=== PATIENT | male | born 1950 | race Two or more races ===

== ENCOUNTER 2017-01-03 12:11 | Observation (INO) | payer BC, OTHER ==
--- NOTE | 2017-01-03 12:27 | CPEKG ---
Heart Rate: 71 RR Interval: 845 P-R Interval: 188 QRSD Interval: 86 QT Interval: 392 QTC Interval: 426 P Venango: 10 QRS Venango: -9 T Wave Venango: 11 EKG Severity - NORMAL ECG - EKG Impression: SINUS RHYTHM Electronically Signed By: Carl Ramos 03-Jan-2017 15:27:18
[2017-01-03 12:34] LABS: HEMATOCRIT 46.6 % (40.0-51.0); HEMOGLOBIN 15.6 g/dL (13.7-17.5); MEAN CELL HEMOGLOBIN 29.3 pg (27.9-34.1); MEAN CELL HEMOGLOBIN CONCENTR. 33.5 g/dL (32.4-36.7); MEAN CELL VOLUME 87.6 fL (81.5-99.8); RED BLOOD CELL COUNT 5.32 10^6/uL (4.40-6.38); RED CELL DISTRIBUTION WIDTH 12.4 % (11.5-15.2)
[2017-01-03 12:35] LABS: % IMMATURE GRANULYOCYTES 0.4 % (0.0-1.1); ABSOLUTE IMMATURE GRANULOCYTES 0.02 10^3/uL (0.00-0.10); ADD DIFF? NO; ADD MORPH? NO; ADD SCAN? NO; ATYPICAL LYMPHOCYTE FLAG 0 (0-99); FRAGMENT RBC FLAG 0 (0-99); LEFT SHIFT FLG 0 (0-99); LIPEMIA HEMOLYSIS FLAG 80 (0-99); MEAN PLATELET VOLUME 11.4 fL (8.7-11.7); PLATELET CLUMPS FLAG 0 (0-99); PLATELET COUNT 191 10^3/uL (150-400)
[2017-01-03 12:36] LABS: ANION GAP 15 mEq/L (8-16); CALCIUM 9.4 mg/dL (8.5-10.4); CARBON DIOXIDE 21 mEq/l (22-31); CHLORIDE 106 mEq/L (97-110); CREATININE 0.9 mg/dL (0.7-1.3); GLOMERULAR FILTRATION RATE > 60; GLUCOSE 108 mg/dL (70-100); SODIUM 142 mEq/L (134-144)
[2017-01-03 12:47] LABS: TROPONIN I < 0.012 ng/mL (0-0.034)
--- NOTE | 2017-01-03 13:02 | EDPHY ---
HPI/HX/ROS/PE/MDM Narrative: CHIEF COMPLAINT: Syncopal episode. HISTORY OF PRESENT ILLNESS: This patient is a 66 year old male arriving via EMS following a syncopal episode at his chiropractor's office earlier today. He has noted calf pain and swelling since a hike at [place] 12/18/16, which he initially thought was soreness. He has tried icing his calves in the evening, and this generally helps but the swelling returns during the day. Today, he visited his chiropractor to evaluate his symptoms, and had a syncopal episode while speaking with his chiropractor. He had not yet had any examination or adjustments. He does not remember feeling poorly or passing out, but remembers waking up to his chiropractor calling 911. He denies shortness of breath, chest pain, nausea, vomiting, or palpitations. He feels well currently, and is not lightheaded or dizzy. He has been eating and drinking normally and maintaining his normal activity levels. No fever, chills, diarrhea, urinary complaints, headaches, or other associated symptoms. He has no personal or family history of blood clots. REVIEW OF SYSTEMS: Aside from elements discussed in the HPI, a comprehensive 10-point review of systems was reviewed and is negative. PAST MEDICAL HISTORY: Enlarged prostate. SOCIAL HISTORY: Works for the [employer]. Nonsmoker, no marijuana use, rare alcohol use. VITAL SIGNS: Reviewed by me GENERAL: Well-developed, well-nourished, resting comfortably in no respiratory distress. HEENT: Atraumatic. Eyes: No icterus, no injection. Mouth: moist mucous membranes. No erythema or lesions. Neck: supple with no adenopathy. LUNGS: Clear to auscultation bilaterally, no wheezes, rhonchi or rales. CARDIAC: Regular rate and rhythm, no rubs, murmurs or gallops. ABDOMEN: Soft, nontender, nondistended, bowel sounds normal. BACK: No CVA tenderness. EXTREMITIES: Trace calf edema. Negative Nasir's sign. No trauma. Range of motion is normal throughout. NEURO: Alert and oriented, grossly nonfocal. SKIN: Warm and dry, no rash. PSYCHIATRIC: Normal mentation, no agitation. Portions of this note were transcribed by a medical customer service representative. I personally performed a history, physical exam, medical decision making, and confirmed accuracy of information the transcribed note. ED Course: 12-LEAD EKG: Please see the full report in [facility]. My interpretation: Normal sinus rhythm, rate 71. Plan for US of legs to rule out DVT, chest x-ray. 13:13 Spoke with the patient's chiropractor. He states the patient said he didn' t feel too well, and then slumped forward. The chiropractor caught the patient, and lowered him onto the exam table. He then called 911. Troponin negative. Chest x-ray negative for acute processes. Vitals within normal limits. 13:[address] Galindo, radiologist. US of legs negative bilaterally. 14:[address] Black, sweat box attendant. He recommends admission for continued monitoring of this patient. 14:[address] Herrera, hospitalist. She accepts admission for syncope. Plan for D-dimer and potential eval for PE. MDM: Diff dx of patient syncope considered including but not limited to vasovagal syncope, arrhythmia, PE, CHF, dehydration, and blood loss. - Data Points Imaging Results: Imaging Impressions Chest X-Ray 01/03/17 13:08 Impression: Clear lungs. No CHF or acute process. Extremity Venous Study 01/03/17 13:10 Impression: No evidence of deep vein thrombosis in the lower extremities. Findings discussed with Fawn Freeman MD 01/03/2017 at 1357. Imaging: Discussed imaging studies w/ audio director Radiologist, I viewed and interpreted images myself Laboratory Results: Laboratory Results 01/03/17 12:15 01/03/17 12:15 01/03/17 01/03/17 01/03/17 12:18 12:15 12:15 WBC 5.24 10^3/uL 10^3/uL (3.80-9.50) RBC 5.32 10^6/uL 10^6/uL (4.40-6.38) Hgb 15.6 g/dL g/dL (13.7-17.5) Hct 46.6 % % (40.0-51.0) MCV 87.6 fL fL (81.5-99.8) MCH 29.3 pg pg (27.9-34.1) MCHC 33.5 g/dL g/dL (32.4-36.7) RDW 12.4 % % (11.5-15.2) Plt Count 191 10^3/uL 10^3/uL (150-400) MPV 11.4 fL fL (8.7-11.7) Neut % (Auto) 58.8 % % (39.3-74.2) Lymph % (Auto) 30.7 % % (15.0-45.0) Calloway % (Auto) 7.1 % % (4.5-13.0) Eos % (Auto) 1.7 % % (0.6-7.6) Baso % (Auto) 1.3 % % (0.3-1.7) Nucleat RBC Rel Count 0.0 % % (0.0-0.2) Absolute Neuts (auto) 3.08 10^3/uL 10^3/uL (1.70-6.50) Absolute Lymphs (auto) 1.61 10^3/uL 10^3/uL (1.00-3.00) Absolute Monos (auto) 0.37 10^3/uL 10^3/uL (0.30-0.80) Absolute Eos (auto) 0.09 10^3/uL 10^3/uL (0.03-0.40) Absolute Basos (auto) 0.07 10^3/uL 10^3/uL (0.02-0.10) Absolute Nucleated RBC 0.00 10^3/uL 10^3/uL (0-0.01) Immature Gran % 0.4 % % (0.0-1.1) Immature Gran # 0.02 10^3/uL 10^3/uL (0.00-0.10) Sodium 142 mEq/L mEq/L (134-144) Potassium 4.0 mEq/L mEq/L (3.5-5.2) Chloride 106 mEq/L mEq/L (97-110) Carbon Dioxide 21 mEq/l L mEq/l (22-31) Anion Gap 15 mEq/L mEq/L (8-16) BUN 17 mg/dL mg/dL (7-23) Creatinine 0.9 mg/dL mg/dL (0.7-1.3) Estimated GFR > 60 Glucose 108 mg/dL H mg/dL (70-100) Calcium 9.4 mg/dL mg/dL (8.5-10.4) Troponin I < 0.012 ng/mL ng/mL (0-0.034) NT-Pro-B Natriuret Pep 63 pg/mL pg/mL (0-125) General Time Seen by Provider: 01/03/17 12:52 Initial Vital Signs: Initial Vital Signs Temperature (C) 36.7 C 01/03/17 12:21 Heart Rate 78 01/03/17 12:21 Respiratory Rate 18 01/03/17 12:21 Blood Pressure 121/77 H 01/03/17 12:21 O2 Sat (%) 100 01/03/17 12:21 O2 Delivery Mode Room Air Allergies/Adverse Reactions: No Known Allergies Allergy (Unverified 04/20/12 08:54) Home Medications: Medication Instructions Recorded Herbals/Supplements -Info Only 1 ea PO DAILY 01/03/17 Aspirin [Aspirin 81mg (*)] 81 mg PO DAILY tab.chew 01/04/17 Departure - Departure Disposition: [facility] Inpatient Acute Clinical Impression: Syncope Qualifiers: Syncope type: unspecified Qualified Code(s): R55 - Syncope and collapse Condition: Fair Report Scribed for: Fawn Freeman Report Scribed by: Annie Velasquez Date of Report: 01/03/17 Time of Report: 13:03
[2017-01-03] MEDS ORDERED: ONDANSETRON DISINTEGRATING 4 MG TAB PO PRN (16:37)
[2017-01-03] MEDS ORDERED: ACETAMINOPHEN 325 MG TAB PO PRN (16:37)
[2017-01-03] MEDS ORDERED: ONDANSETRON 4 MG/2 ML VIAL IVP PRN (16:37)
[2017-01-03] MEDS ORDERED: IOPAMIDOL (ISOVUE 370) 100 ML BTL IV ONE ×2 (17:06→17:08)
--- NOTE | 2017-01-03 17:16 | GHP ---
[f rep st] HISTORY AND PHYSICAL DATE OF ADMISSION: 01/03/2017 HISTORY OF PRESENT ILLNESS: The patient is a 66-year-old gentleman with minimal past medical histor y other than an enlarged prostate, who presents with a syncopal episode. He works for the [employer] and spends a fair amount of time hiking [place]. It sounds like he has had minimal [facility] medical care in the past. He has had some cramps in his left leg over the last couple of days w ith some swelling. He denies antecedent injury. He saw his chiropractor today, before he saw me, a nd before there was any manipulation, he had a syncopal episode. He denies chest pain, palpitations , shortness of breath, or hemoptysis. He does not have anginal symptoms such as exertional chest pa in, arm pain, jaw pain, or chest pressure. His mother when she was in her 40s of what sounds l donna sudden cardiac . The patient takes no medicines, including no aspirin. He has had no recent nausea, vomiting or diar storm to suggest dehydration. No fever or chills. REVIEW OF SYSTEMS: Complete 10-point review of systems conducted and negative except as noted in th e HPI. PAST MEDICAL HISTORY: BPH. ALLERGIES: No known drug allergies. HOME MEDICATIONS: A bunch of supplements including saw palmetto. He also has ciprofloxacin on his list but he does not tell me about taking this. SOCIAL HISTORY: No tobacco, no alcohol. Lives in [place]. Works for the [employer]. FAMILY HISTORY: As noted in the HPI. PHYSICAL EXAMINATION: PRESENTING VITAL SIGNS: Temp 36.7, blood pressure 131/77, pulse 78, breathin g 18 times a minute, 100% on room air. GENERAL: No acute distress. HEENT: Sclerae anicteric. Or opharynx clear. Mucous membranes moist. NECK: Supple without lymphadenopathy or JVD. LUNGS: Andi ar to auscultation bilaterally. HEART: S1, S2. ABDOMEN: Soft, nontender, nondistended. LOWER EX TREMITIES: No edema. Calves nontender. SKIN: Without rash. NEUROLOGIC: Grossly nonfocal. LABORATORY DATA: Sodium 142, potassium 4.0, chloride 106, bicarb 21, BUN 17, creatinine 0.9, glucos e 108. Troponin less than 0.012. BNP is 63. D-dimer is elevated at 0.64. White count 5, hematocr it 47, platelets 191,000. EKG, interpreted by me, shows sinus at 71 with normal axis and intervals with T-wave inversion in le ad III but otherwise no ST or T-wave changes. I have no prior for comparison. Chest x-ray, interpr eted by me, shows no acute cardiopulmonary disease. No infiltrate. Extremity venous ultrasound galindo ws no evidence of DVT in either leg bilaterally. I discussed the case with Dr. Fawn Freeman. ASSESSMENT AND PLAN: A 66-year-old gentleman who presents with syncope. 1. Syncope. There is not a whole lot in the history to direct this, although his family history of sudden cardiac and recent asymmetric lower extremity swelling are concerning for either coron ria event or pulmonary embolus. To that end, I will do a CT PE, follow him on telemetry, do a stres s test and echocardiogram in the morning. He does not have a monitor. 2. Benign prostatic hypertrophy. It is reasonable to offer the patient Flomax given his symptoms. 3. Muscle cramps with swelling. The patient is ambulating well. I do not think fracture is someth ing to be considered. I will check a magnesium and replete it if it is low. 4. Prophylaxis. Pharmacologic prophylaxis indicated if in the hospital longer than 24 hours. DISPOSITION: Observation status. /[id number]/MODL
[2017-01-03 17:49] LABS: MAGNESIUM 2.2 mg/dL (1.6-2.3)
[2017-01-03 18:00] LABS: TROPONIN I < 0.012 ng/mL (0-0.034)
[2017-01-03] MEDS: ASPIRIN 81 MG CHEWABLE TAB PO SCH (19:01)
[2017-01-04 03:51] LABS: % IMMATURE GRANULYOCYTES 0.2 % (0.0-1.1); ABSOLUTE IMMATURE GRANULOCYTES 0.01 10^3/uL (0.00-0.10); ADD DIFF? NO; ADD MORPH? NO; ADD SCAN? NO; ATYPICAL LYMPHOCYTE FLAG 10 (0-99); FRAGMENT RBC FLAG 0 (0-99); HEMATOCRIT 41.1 % (40.0-51.0); HEMOGLOBIN 13.8 g/dL (13.7-17.5); LEFT SHIFT FLG 0 (0-99); LIPEMIA HEMOLYSIS FLAG 80 (0-99); MEAN CELL HEMOGLOBIN 29.2 pg (27.9-34.1); MEAN CELL HEMOGLOBIN CONCENTR. 33.6 g/dL (32.4-36.7); MEAN CELL VOLUME 86.9 fL (81.5-99.8); MEAN PLATELET VOLUME 10.8 fL (8.7-11.7); PLATELET CLUMPS FLAG 0 (0-99); PLATELET COUNT 189 10^3/uL (150-400); RED BLOOD CELL COUNT 4.73 10^6/uL (4.40-6.38); RED CELL DISTRIBUTION WIDTH 12.5 % (11.5-15.2)
[2017-01-04] MEDS: ASPIRIN 81 MG CHEWABLE TAB PO SCH (08:16)
--- NOTE | 2017-01-04 11:15 | ECHO ---
[id number] + + [address] : : [place] [address] : : [phone] + Adult Echocardiographic Report + --+ :Name: SHAMEKA HARRISMonie Date: 01/04/2017 07:46 AM : : Hospital Admission Number: [id number] Location: 2 01: :: 1950 Gender: Male Height: 708 in : :Age: 66 yrs Race: [employer] Weight: 165 lb : :Reason For Study: Syncope/family history sudden cardiac : : BSA: 10.3 meters2 : + --+ MMode/2D Measurements \T\ Calculations IVSd: 0.41 cm LVIDd: 4.5 cm FS: 48.5 % Ao root diam: LVPWd: 0.61 cm LVIDs: 2.3 cm EDV(Teich): 3.6 cm 93.5 ml LA dimension: ESV(Teich): 3.3 cm 18.7 ml EF(Teich): 80.0 % LVLd ap4: 8.8 cm SV(MOD-sp4): EDV(MOD-sp4): 30.0 ml 42.0 ml LVLs ap4: 6.9 cm ESV(MOD-sp4): 12.0 ml EF(MOD-sp4): 71.4 % Normal Measurement Values: + + :LVIDd (3.5-5.7cm) IVSd (0.6-1.1cm) LVPWd (0.6-1.1cm) Aortic Root (2.0-3.7cm)Left Atrium (1.5-4.0cm): :LV Vol(d) (76-115ml) LV Vol(s) (29-48ml) Ejec Fraction (50-65%)PV Zaid (0.6- 1.2m/s) TV Zaid (0.4-1.0m/s) : :MV E Zaid (0.8-1.0m/s)MV A Zaid (0.3-1.0m/s)LVOT Zaid (0.7-1.2m/s) Asc Ao Zaid ( 0.9-1.8m/s) : + + Doppler Measurements \T\ Calculations MV E max zaid: 66.6 cm/sec Ao V2 max: 103.2 cm/sec MV A max zaid: 56.8 cm/sec Ao max P.3 mmHg MV E/A: 1.2 Left Ventricle The left ventricle is normal in size. There is normal left ventricular wall thickness. Left ventricular systolic function is normal. Ejection Fraction = 70-75%. No regional wall motion abnormalities noted. Right Ventricle The right ventricle is normal in size and function. Atria The left atrial size is normal. Right atrial size is normal. Mitral Valve The mitral valve is normal in structure and function. There is no evidence of mitral valve prolapse. There is no mitral valve stenosis. Tricuspid Valve Normal tricuspid valve. There is mild tricuspid regurgitation. Right ventricular systolic pressure is normal. Aortic Valve The aortic valve is trileaflet. All three leaflets are mildly sclerotic. There is no aortic stenosis. There is no aortic insufficiency. Pulmonic Valve The pulmonic valve is normal in structure and function. There is no pulmonic valvular regurgitation. Great Vessels The aortic root is normal size. Pericardium/Pleural There is no pericardial effusion. Conclusion A complete two-dimensional transthoracic echocardiogram was performed (2D, M-mode, Doppler and color flow Doppler). 1. The left ventricle is normal in size and function. The Ejection Fraction = 70-75%. 2. The mitral valve is normal in structure and function. 3. The aortic valve is trileaflet. All three leaflets are mildly sclerotic. There is no aortic stenosis. There is no aortic insufficiency. 4. Right ventricular systolic pressure is normal. 5. No old studies for comparison. Final Reading Physician: William Black MD electronically signed on 01/04/2017 11:14 AM Ordering Physician: Vishnu Kimble Performed By: Funmi Garay RDCS
[2017-01-04 11:21] VITALS: BP 95/68; PULSE 67; RESP 22; TEMP 97.6; O2SAT 95
--- NOTE | 2017-01-04 14:00 | HOSPPROG ---
Hospitalist Progress Note Assessment/Plan: 66 yo m w syncope neg eval home today see dc summary Subjective: tele:no events Objective: Vital Signs Temp Pulse Resp BP Pulse Ox 36.4 C 67 22 H 95/68 L 95 01/04/17 11:21 01/04/17 11:21 01/04/17 11:21 01/04/17 11:21 01/04/17 11:21 Laboratory Results 01/04/17 03:08 01/03/17 01/04/17 01/05/17 05:59 05:59 05:59 Intake Total 850 Balance 850 - Physical Exam Constitutional: no apparent distress, appears nourished Eyes: PERRL, anicteric sclera Ears, Nose, Mouth, Throat: moist mucous membranes, hearing normal Cardiovascular: regular rate and rhythym, no murmur, rub, or gallop Respiratory: no respiratory distress, no rales or rhonchi Gastrointestinal: normoactive bowel sounds, soft, non-tender abdomen Genitourinary: no bladder fullness, No wanrer in urethra Skin: warm, normal color Musculoskeletal: full muscle strength Neurologic: AAOx3
--- NOTE | 2017-01-04 14:13 | GCON ---
[f rep st] CONSULTATION DATE OF CONSULTATION: 01/04/2017 CHIEF COMPLAINT: We have been asked by Dr. Kimble to evaluate this patient with a chief complaint o f syncope. HISTORY OF PRESENT ILLNESS: The patient is a 66-year-old gentleman with limited past medical histor y, who was admitted on 01/03/2017 with an episode of syncope. The patient was in his usual state of health until the day of admission, when he went to his chiropractor's office for a manipulation. W charmaine at the chiropractor's office, he was told that he had a weakened heart and that he would need s ome supplementation. Upon hearing this, he did report some emotional distress. This was followed b y a franky episode of syncope. The patient denies symptoms of chest pain or palpitations prior to th e event. He is unsure if he felt clammy or nauseous prior to the event. Patient reports 1 previous episode of syncope back in the . He reports coming into his house after a particularly long a nd stressful hike in the snow and upon entering the kitchen, he fell lightheaded, dizzy and had an e pisode of syncope. He denies emotional stress associated with this event. Patient remains moderate ly to highly active, walking on a regular basis. He denies symptoms of chest pain or significant sh ortness of breath with this activity. There is no history of palpitations, orthopnea or PND. Tommy salas does report that his blood pressure typically runs on the low side. Patient also reports some si gnificant calf discomfort after hiking up at [facility], checking out the new lift that was quin ng installed. PAST MEDICAL HISTORY: Benign prostatic hypertrophy. MEDICATIONS: None. ALLERGIES: No known drug allergies. SOCIAL HISTORY: Patient works for the [employer]. He does not smoke. He denies problems with alcohol. FAMILY HISTORY: Noncontributory. REVIEW OF SYSTEMS: A 10-point review of systems is negative, except as noted in HPI. PHYSICAL EXAMINATION: GENERAL: Patient is resting in bed. He does not appear to be in acute distr ess. VITALS: Temperature is afebrile. Pulse is 60. Blood pressure 95/62, respiratory rate is 18, SaO2 is 94% on room air. HEENT: Normocephalic, atraumatic. Extraocular muscles intact. NECK: N o JVD. No bruits. LUNGS: Clear to auscultation bilaterally. CARDIOVASCULAR: Regular rate and rh ythm, S1, S2. No murmurs, rubs, or gallops appreciated. ABDOMEN: Soft, nontender. Normoactive pratima wel sounds. No hepatosplenomegaly. Aorta not palpated. EXTREMITIES: No clubbing, cyanosis, or ed eliane. SKIN: No evidence of rashes. NEURO: Patient is awake, alert, and oriented x3. LABORATORY: White blood cell count 4.66, hemoglobin 13.8, hematocrit 41.1, platelet count 189. Sod ium 142, potassium 4.0, chloride 106, CO2 21, BUN 17, creatinine 0.9. Troponin within normal limits x3. D-dimer is elevated at 0.64. CT pulmonary angiogram is negative for pulmonary embolism. EKG demonstrates sinus rhythm, normal axis, normal intervals, no acute ST or T-wave changes. ASSESSMENT AND PLAN: This patient is a 66-year-old gentleman who presents with an episode of syncop e. Suspect his symptoms are likely related to a vagal event; however, I do think it would be werner t to perform risk stratification with an echocardiogram, Holter monitoring and stress test. /[id number]/MODL
--- NOTE | 2017-01-04 14:54 | GDS ---
[f rep st] DISCHARGE SUMMARY DISCHARGE DIAGNOSES: 1. Syncope. 2. Coronary atherosclerosis as evidenced by CTA. Please see admission history and physical by Dr. Vishnu Kimble. HOSPITAL COURSE: The patient presented with syncope without prodrome. He had a CTA negative for pu lmonary embolism. He had no edgar or tachyarrhythmias. He had a negative stress test with good exe rcise tolerance, going 9 minutes on the Tommy protocol. He had an echocardiogram that was unremarka ble. Negative troponins. Normal BNP, does not have heart failure symptoms. He was not dehydrated. This remained somewhat unexplained syncope, but given his evaluation here it is reasonable to disc harge him. He enjoys excellent exercise tolerance working for the [employer], hiking on a regul ar basis. He does have a family history of what sounds like early coronary artery disease. He is d ischarged home with a recommendation for an aspirin daily, and established a primary care physician, as he was seeing a chiropractor for his primary care up until now. /[id number]/MODL
--- NOTE | 2017-01-04 17:59 | CPR ---
[f rep st] NONINVASIVE CARDIAC PROCEDURE REPORT DATE OF PROCEDURE: 01/04/2017 PROCEDURE: Nuclear stress test. REASON FOR TEST: Chest discomfort. RESTING PORTION: Resting blood pressure 106/66, resting heart rate 78. EKG shows a sinus rhythm wi th a ventricular rate of 77. There is a slight ST lift in lead III. Anteroseptal late R-wave progr ession noted. No arrhythmias. He is asymptomatic. STRESS PORTION: He was exercised according to the Tommy protocol for a total of 9 minutes. He reac hed a MET level of 10.2, maximal heart rate was 148, maximal blood pressure 144/70, occasional PVC w as noted. There were no other ischemic changes noted. RECOVERY: He spontaneously recovered. His heart rate came down nicely. He remained asymptomatic. There were no arrhythmias during the recovery period. Recovery blood pressure 106/60, recovery hea rt rate 109. At this time, he is stable to return to his room. /[id number]/MODL
== END 2017-01-04 15:34 | disposition home or self-care (01) ==
LOC: EDUNIT# → F2W 15:30
PROVIDERS: ADMIT Hospitalist; ATTEND Internal Medicine
DX: R55 Syncope and collapse (principal); I25.10 Atherosclerotic heart disease of native coronary artery without angina pectoris; M62.838 Other muscle spasm; N40.0 Benign prostatic hyperplasia without lower urinary tract symptoms
CPT/HCPCS: 71020; 71275; 93005; 93017; 93306; 93970; 99285; G0378; Q9967